=== PATIENT | female | born 1960 | race Caucasian/White ===

== ENCOUNTER 2025-07-03 13:28 | Emergency (ER) | payer SELFPAY ==
[~2025-07-03] VITALS: Ht 167.6 cm; Wt 64.0 kg
[2025-07-03 13:33] VITALS: O2SAT 98
[2025-07-03] MEDS: LIDOCAINE 5% PATCH TOP SCH (16:16)
[2025-07-03] MEDS: KETOROLAC 30MG/ML VIAL IM ONE (16:16)
[2025-07-03] MEDS: HYDROCODONE/ACETAMINOPHEN 5/325MG TABLET PO ONE (16:17)
[2025-07-03] MEDS ORDERED: TOPUD PO (16:44)
[2025-07-03] MEDS ORDERED: LIDO-53 TP (16:44)
[2025-07-03] MEDS ORDERED: IBUP-2028 MT (16:44)
[2025-07-03 17:09] VITALS: BP 138/83; PULSE 89; RESP 18; TEMP 37.1; O2SAT 98
== END 2025-07-03 17:11 | disposition home or self-care (01) ==
LOC: ER 13:28
DX: M54.9 Dorsalgia, unspecified (principal); I10 Essential (primary) hypertension; M48.061 Spinal stenosis, lumbar region without neurogenic claudication; M48.07 Spinal stenosis, lumbosacral region; W19.XXXA Unspecified fall, initial encounter; Y93.89 Activity, other specified; Y92.89 Other specified places as the place of occurrence of the external cause; Y99.8 Other external cause status
CPT/HCPCS: 99285; 72128; 72131; 96372; J1885